=== PATIENT | female | born 1990 ===

== ENCOUNTER 2017-12-23 14:18 | Emergency (ER) | payer BC ==
[~2017-12-23] VITALS: Ht 152.4 cm; Wt 66.8 kg
[~2017-12-23 14:18] MED LIST: MOTRIN 600600 MG/TAB PO; PERCOCET 325 MG1 TA2 PO; WOMEN'S DAILY1 TAB PO
[2017-12-23 14:20] VITALS: TEMP 97.4
[2017-12-23] MEDS ORDERED: PRENATAL FORMU1 EAC3 PO (14:24)
[2017-12-23] MEDS ORDERED: CALCIUM CARBON650 M2 PO (14:24)
[2017-12-23 15:19] LABS: BASO # 0.1 (0.0-0.2); BASO % 0.4 % (0.0-2.0); EOS # 0.3 (0.0-0.7); EOS % 2.2 % (0-4.0); GRAN # 8.1 (1.4-6.5); GRAN % 68.5 % (42.2-75.2); LYMPH # 2.1 (1.2-3.4); LYMPH % 17.7 % (20.0-51.0); MEAN CELL VOLUME 89 fl (80.0-100.0); MEAN CORPUSCULAR HGB CONC 33 g/dl (33.0-37.0); PLATELET COUNT 283 K/mm3 (130-400); RED BLOOD COUNT 3.79 M/mm3 (4.10-5.30)
[2017-12-23 15:26] LABS: HEMATOCRIT 33.7 % (37.0-47.0); HEMOGLOBIN 11.1 g/dl (12.5-16.0); MEAN CORPUSCULAR HEMOGLOBIN 29 pg (27.0-31.0)
[2017-12-23 15:37] LABS: COLLECTION METHOD CLEAN CATCH
[2017-12-23 15:43] LABS: PH 7 (5-8); SQUAMOUS EPITHELIAL None Seen /hpf; URINE APPEARANCE Clear; URINE BACTERIA None Seen /hpf; URINE BILIRUBIN Negative (NEGATIVE); URINE BLOOD Negative (NEGATIVE); URINE COLOR Straw; URINE GLUCOSE Negative (NEGATIVE); URINE KETONE Negative (NEGATIVE); URINE LEUKOCYTE ESTERASE Negative (NEGATIVE); URINE NITRATE Negative (NEGATIVE); URINE PROTEIN(semi-quant) Negative (NEGATIVE); URINE RBC None Seen /hpf; URINE UROBILINOGEN Negative (NEGATIVE)
[2017-12-23 15:47] LABS: ALBUMIN 3.8 gm/dL (3.5-5.0); BILIRUBIN,TOTAL 0.2 mg/dL (0.0-1.0); CREATININE, serum 0.35 mg/dL (0.52-1.25); POTASSIUM 3.3 mmol/L (3.4-5.0); TOTAL PROTEIN 7.3 gm/dL (6.4-8.2)
[2017-12-23] MEDS ORDERED: PEPCID 20MG TAB20 MG PO ×2 (15:58→16:09)
[2017-12-23 16:04] VITALS: BP 103/70; PULSE 75
[2017-12-23] MEDS ORDERED: K-DUR 10 MEQ T10 MEQ PO (16:09)
== END 2017-12-23 16:33 | disposition home or self-care (01) ==
LOC: COL.ER 14:18
PROVIDERS: Emergency Medicine
DX: O99.342 Other mental disorders complicating pregnancy, second trimester (principal); F32.9 Major depressive disorder, single episode, unspecified; O99.282 Endocrine, nutritional and metabolic diseases complicating pregnancy, second trimester; E87.6 Hypokalemia; R55 Syncope and collapse; O26.892 Other specified pregnancy related conditions, second trimester; R06.00 Dyspnea, unspecified; Z3A.26 26 weeks gestation of pregnancy

== ENCOUNTER 2018-03-22 04:00 | Inpatient (IN) | payer BC ==
[2018-03-22] VITALS (47 sets, daily range): BP systolic 92–125; BP diastolic 55–77; PULSE 64–136; TEMP 97.7–98.9
[~2018-03-22] VITALS: Ht 149.9 cm; Wt 76.4 kg
[~2018-03-22 04:00] MED LIST changes: +CALCIUM CARBON650 M2 PO; +K-DUR 10 MEQ T10 MEQ PO; +PEPCID 20MG TAB20 MG PO; +PRENATAL FORMU1 EAC3 PO
[2018-03-22 05:38] LABS: HEMOGLOBIN 11.7 g/dl (12.5-16.0); MEAN CELL VOLUME 86 fl (80.0-100.0); MEAN CORPUSCULAR HEMOGLOBIN 28 pg (27.0-31.0); MEAN CORPUSCULAR HGB CONC 33 g/dl (33.0-37.0); MEAN PLATELET VOLUME 10.8 fl (7.4-10.4); PLATELET COUNT 277 K/mm3 (130-400); RED BLOOD COUNT 4.16 M/mm3 (4.10-5.30); REDCELL DISTRIBUTION WIDTH-CV 14.6 % (11.5-14.5)
[2018-03-22 05:52] LABS: HEMATOCRIT 35.9 % (37.0-47.0)
[2018-03-22 06:03] LABS: BAND 13 % (0-10); LYMPHOCYTE 25 % (20.0-51.0); NEUTROPHILS 55 % (42.0-75.2); PLATELET ESTIMATE NORMAL (NORMAL)
[2018-03-23 02:20] VITALS: BP 87/62; PULSE 78; TEMP 97.8
[2018-03-23 07:45] VITALS: BP 96/64; PULSE 69; TEMP 97.5
[2018-03-23 08:38] LABS: HEMOGLOBIN 11.6 g/dl (12.5-16.0)
[2018-03-23 08:43] LABS: HEMATOCRIT 35.9 % (37.0-47.0)
[2018-03-23] MEDS ORDERED: IBU600 MG PO (10:25)
[2018-03-23] MEDS ORDERED: BREASTPUMP MC (10:26)
[2018-03-23 15:45] VITALS: BP 99/62; PULSE 85; TEMP 98.5
== END 2018-03-23 18:30 | disposition home or self-care (01) | DRG 775 ==
LOC: LDRO 04:00 → LDR 04:41 → OB 18:16
PROVIDERS: Obstetrics & Gynecology
PROC: 10E0XZZ Delivery of Products of Conception, External Approach (ICD-10-PCS; principal; 2018-03-22)
PROC: 0KQM0ZZ Repair Perineum Muscle, Open Approach (ICD-10-PCS; 2018-03-22)
DX: O70.1 Second degree perineal laceration during delivery (principal); Z37.0 Single live birth; Z3A.39 39 weeks gestation of pregnancy
CPT/HCPCS: J2590; J2795; J7120